=== PATIENT | male | born 1995 | race Caucasian/White ===

== ENCOUNTER 2016-12-03 11:01 | Emergency (ER) | payer MEDICAID ==
--- NOTE | 2016-12-03 11:15 | ED Physician Chart ---
Chief Complaint/HPI - Patient Information Date Seen:: 12/03/16 Time Seen:: 11:00 Chief Complaint:: Upper back pain for about 3 weeks. History of Present Illness:: c/o upper back pain for about 3 weeks. No chest pain. Upper back pain can be precipitated with bodily movements. No fever, cough, dyspnea, or lightheadedness. Pt has been taking po well without N/V/D. Pt denies any back injury. Pt has not had any analgesic today. Pt states that he was evaluated at another ER 4 days ago with CXR, lab studies, etc. that were all normal. Pt has not followed with his PCP Dr. Bailey. Allergies:: Allergies Allergy/AdvReac Type Severity Reaction Status Date / Time alprazolam [From Xanax] Allergy Verified 12/03/16 11:08 Vitals:: see Nurse Note. Historian:: Patient Family MD/PCP:: Dr. Bailey LMP:: N/A Review:: Nurse's Note Reviewed Review of Systems - Review of Systems General/Constitutional: No fever, No chills, No weight loss, No weakness, No diaphoresis, No edema, No loss of appetite Skin: No skin lesions, No rash, No bruising Head: No headache, No light-headedness Eyes: No loss of vision, No pain, No diplopia ENT: No earache, No nasal drainage, No sore throat Neck: No neck pain, No swelling, No thyromegaly, No stiffness, No mass noted Cardio Vascular: No chest pain, No palpitations, No PND, No orthopnea, No edema Pulmonary: No SOB, No cough, No sputum, No wheezing GI: No nausea, No vomiting, No diarrhea, No pain G/U: No dysuria, No frequency, No hematuria Musculoskeletal: Back pain (upper back pain, see HPI.) Endocrine: No polyuria, No polydipsia Psychiatric: No prior psych history Hematopoietic: No bruising, No lymphadenopathy Allergic/Immuno: No urticaria, No angioedema Neurological: No syncope, No focal symptoms, No weakness, No paresthesia, No headache, No seizure, No dizziness, No confusion Past Medical History - Past Medical History Past Medical History: Dyslipidemia, Seizures (Pt has been seizure free since 2009.) Family History: None Social History: Non Smoker, No Alcohol, No Drug Use, Single, Lives With Parents , Employed Employment:: it security manager. Surgical History: None Psychiatricy History: None Medication: Reviewed Family Medical History - Family Member Mother History Unknown: Yes Physical Exam - Physical Examination General/Constitutional: Awake, Well-developed, well-nourished, Alert, No distress, GCS 15, Non-toxic appearing, Ambulatory Other Gen/Cons comments:: Breathes comfortably, speaks clearly, interacts normally, and ambulates without difficulty. Pt appears to be slightly anxious. Head: Atraumatic Eyes: Lids, conjuctiva normal, PERRL, EOMI Skin: Nl inspection, No rash, No skin lesions, No ecchymosis, Well hydrated, No lymphadenopathy ENMT: External ears, nose nl, Nasal exam nl, Lips, teeth, gums nl, Oropharynx nl Neck: Nontender, Full ROM w/o pain, No JVD, No nuchal rigidity, No mass, No stridor Respiratory: Nl effort/Exclusion, Clear to Auscultation, No Wheeze/Rhonchi/Rales Cardio Vascular: RRR (HR 96), No murmur, gallop, rubs, NL S1 S2 GI: No tenderness/rebounding/guarding, No organomegaly, Normal BS's, Nondistended, No mass/bruits Other GI comments:: Obese but soft. Extremities: No tenderness or effusion, Full ROM, normal strength in all extremities, No edema, Normal digits & nails Neuro/Psych: Alert/oriented (oriented x 3), Mood normal, Normal gait, No focal deficits Other Misc comments:: Reproducible tenderness with palpation at upper thoracic, parathoracic region. No gross deformity, erythema, ecchymosis, open wound or crepitus. Labs/Radiology/EKG Results - Radiology Results Results: T-spine X-ray (3v): Based on my interpretation, no acute fx or subluxation. Official report is pending. - EKG Interpretations EKG Time:: 11:06 Rate & Rhythm: Sinus tachycardia with VR 112 Comments:: No acute ischemic changes. ED Septic Shock - . Is Septic Shock (SBP<90, OR Lactate>4 mmol\L) present?: No Reassessment (Disposition) - Reassessment Reassessment:: 1135 Pain medication was offered, but pt declined and stated that his upper back pain has diminished. Pt feels better and less anxious. 1230 Pt remains well. His upper back pain has resolved after resting. Pt denies any bodily pain or discomfort. T-spine X-ray just became available. Radiological findings have been reviewed with pt. Pt requests to go home now and does not want further observation/management in hospital. Aftercare instructions have been given. Reassessment Condition:: Improved - Diagnosis Diagnosis:: Upper back pain c/w thoracic strain, probably due to poorly supportive mattress. Stable and currently asymptomatic. - Aftercare/Follow up Instructions Aftercare/Follow-Up Instructions:: Refer to Discharge Instructions Notes:: Pt has been advised to reassess his mattress and to replace it with more supportive sleep surface as recommended. Motrin 200 mg tab 4 tabs po q8h prn musculoskeletal pain. Strain care instructions have been given. Avoid heavy lifting, or strenuous activities until further physician direction. F/U with PCP Dr. Bailey in one day for recheck. Return to ER immediately if condition worsens or if any further questions/problems. Medication Prescribed:: None - Patient Disposition Discharge/Transfer:: Home Time:: 12:35 Condition at Disposition:: Stable, Improved
--- NOTE | 2016-12-04 11:00 | Diagnostic Imaging Report ---
Thoracic spine (3 views) HISTORY: Pain There is a minimal scoliosis of the thoracolumbar spine convexity to the left. This may be positional. Alignment is normal. Disc spaces are maintained. No focal lesions. IMPRESSION: 1. No acute abnormalities 2. Minimal scoliosis. This may be positional.
== END 2016-12-03 12:31 | disposition home or self-care (01) ==
LOC: ER 11:01
DX: S29.012A Strain of muscle and tendon of back wall of thorax, initial encounter (principal); E78.5 Hyperlipidemia, unspecified; Z88.8 Allergy status to other drugs, medicaments and biological substances; X58.XXXA Exposure to other specified factors, initial encounter; Y93.89 Activity, other specified; Y92.89 Other specified places as the place of occurrence of the external cause; Y99.8 Other external cause status
CPT/HCPCS: 72072-TC; Z7502